=== PATIENT | female | born 1965 | race Caucasian/White ===

== ENCOUNTER → 2016-11-11 | Outpatient (CLI) | payer MEDICAID ==
[~2016-11-11] MED LIST: AMITRIPTYLINE H75 MG PO; CRESTOR20 MG PO; GABAPENTIN 600600 MG PO; GLYBURIDE5 M1 PO; HYDROCHLOROTH12.5 M2 PO; MELOXICAM7.5 MG PO; NORCO 325 MG-51 TAB PO; QUINAPRIL HCL40 MG PO; RANITIDINE150 M1 PO
[2016-11-11 14:32] LABS: BILIRUBIN, INDIRECT 0.21 mg/dL (0-0.9)
== END ==
LOC: RT 12:03
PROVIDERS: Internal Medicine Interventional Cardiology
DX: E78.00 Pure hypercholesterolemia, unspecified (principal)